=== PATIENT | female | born 1990 | race African-American/Black ===

== ENCOUNTER 2019-06-15 01:22 | Emergency (ER) | payer OTHER, SELFPAY ==
--- NOTE | ~2019-06-15 | US_ITS ---
EXAMINATION: US OB <=14 wk fetus w TV DATE: 06/15/2019 03:31 INDICATION: Vaginal bleeding in . Left lower quadrant abdominal pain. TECHNIQUE: Real-time transabdominal and transvaginal pelvic ultrasound was performed. COMPARISON: None. FINDINGS: TRANSABDOMINAL ULTRASOUND: The uterus measures 9.7 x 6.3 x 5.3 cm. TRANSVAGINAL ULTRASOUND: There is a fluid collection in the endometrial complex with mean diameter of 8 mm. If this finding is a gestational sac, it correlates with an estimated gestational age of 5 wee ks and 3 days +/- 3 days. No yolk sac or pole is visible. There is an intrauterine device in a bnormally low position in the lower uterine segment. The right ovary measures 2.9 x 2.8 x 1.9 cm. The left ovary measures 3.2 x 3.6 x 2.6 cm. There is normal vascular flow in the ovaries. There is a sma ll volume of free fluid in the pelvis. IMPRESSION: 1. Fluid collection in the endometrial complex that may be a gestational sac with estimated date of delivery of 02/11/2010. Spontaneous and ectopic are not excluded. Serial beta-hCGs are recommended. 2. Intrauterine device in abnormally low position in the lower uterine segment. Reviewed, dictated and finalized at location A. [employer] IMPRESSION: 1. Fluid collection in the endometrial complex that may be a gestational sac w ith estimated date of delivery of 02/11/2010. Spontaneous and ectopic are not excluded. Serial beta-hCGs are recommended. 2. Intrauterine device in abnormally low position in the lower uterine segment.
[2019-06-15 01:33] VITALS: BP 128/86; PULSE 76; RESP 16; TEMP 36.6; O2SAT 100
--- NOTE | 2019-06-15 01:42 | ED.ABDPAIN ---
HPI - Abdominal Pain General Chief Complaint: Abdominal Pain Stated Complaint: abd pain Time Seen by Provider: 06/15/19 01:32 Source: patient and RN notes reviewed Mode of arrival: ambulatory Limitations: no limitations History of Present Illness HPI narrative: Pt is a 28 y/o female who presents to the ED with c/o LLQ pain starting earlier this evening. She notes that she is currently on her period. Pt states that she felt fine throughout the day yesterday, but notes that she developed intense LLQ pain while laying down around 20:30 yesterday. She states that her pain initially felt similar to menstrual cramps. Pt states that her pain soon worsened into a sharp pain, and notes that her pain radiates down her lt leg. Pt states that she tried taking Tylenol this evening for her pain, but notes that she had a total of 3 episodes of emesis after taking the medication. She also reports mild low back pain, which she notes seems to be unrelated to her ABD pain. Pt denies any numbness, fever, dysuria, vaginal discharge, or diarrhea. She states that she has no Hx of similar symptoms. Pt currently has an IUD in place. MD elicited complaint: abdominal pain Onset (ago): hour(s) (5.5) Pain Consistency: colicky Location: LLQ Quality: sharp Radiation: other (down lt leg) Associated symptoms: nausea, vomiting and other (low back pain) Treatments prior to arrival: other (Tylenol) Related Data Home Medications Medication Instructions Recorded Confirmed levonorgestrel 20 mcg/24 hours (5 1 device I-UTERINE ONCE 03/29/19 03/29/19 yrs) 52 mg intrauterine device Allergies Allergy/AdvReac Type Severity Reaction Status Date / Time Sulfa (Sulfonamide Allergy Unknown Difficulty Verified 03/29/19 11:40 Antibiotics) breathing Review of Systems Review of Systems: Narrative: CONSTITUTIONAL: Denies fever, chills, or sweats. GASTROINTESTINAL: Reports LLQ pain radiating down lt leg, nausea, and vomiting. Denies diarrhea. GENITOURINARY: Denies dysuria, hematuria, vaginal discharge. MUSCULOSKELETAL: Reports low back pain. Denies joint pain. NEUROLOGIC: Denies headache, numbness, or weakness. All systems reviewed & are unremarkable except as noted in HPI and below PMFSH Past Medical History Medical History ADD (attention deficit disorder) IUD (intrauterine device) in place Surgical History Surgical History No significant past surgical history Social History Social History Smoking status: Current every day smoker Second hand tobacco smoke exposure: Yes Alcohol intake: current Exam Narrative: Exam Narrative: GENERAL: Well-appearing, well-nourished, and in no acute distress. HEAD: Normocephalic, atraumatic. EYES: PERRLA and EOMI. ENT: Nares clear, no rhinorrhea or epistaxis. Mucous membranes moist. NECK: Supple. CHEST: Clear to auscultation. No respiratory distress. HEART: Regular rate and rhythm. No murmur heard. Normal peripheral pulses. ABDOMEN: Soft, nondistended, normal active bowel sounds. LLQ and suprapubic tenderness. No flank tenderness. /HIMS CODER: Labia majora and minora normal without lesions. Vagina scant blood, no brisk bleeding. No cervical motion tenderness. Mild right adnexal tenderness, no fullness. No mucoid discharge present. OS not visualized. IUD not visualized. EXTREMITIES: Normal range of motion. No edema. Negative straight leg raise. SKIN: Warm, dry, no rash. NEURO: No focal deficits. Alert and oriented. Course Course Emergency Course: Patient presented for evaluation of abdominal pain. Patient reportedly with IUD, states she has been on her period for essentially 10 days. At the time of initial assessment, ABCs are intact and vital signs are stable. Physical examination notable for left lower quadrant abdominal tenderness, suprapubic tenderness. Pelvic exam notable for blood present in the vaginal vault, cervical loss n
[2019-06-15 02:09] LABS: Basophils Percent Auto 0.4 % (0.2-1.2); Eosinophils Absolute Auto 0.1 K/mm3 (0-0.3); Hematocrit 37.7 % (37.0-47.0); Hemoglobin 11.8 g/dL (12.0-15.0); Immature Granulocyte Absolute 0.01 K/mm3 (0.00-0.031); Immature Granulocyte Percent A 0.1 % (0-0.5); Lymphocytes Absolute Auto 1.86 K/mm3 (0.9-3.2); Lymphocytes Percent Auto 20.3 % (18.3-44.2); Mean Corpuscular HGB Conc 31.3 g/dl (32-36); Mean Corpuscular Hemoglobin 24.8 pg (26-34); Mean Corpuscular Volume 79.2 fl (80-100); Mean Platelet Volume 10.9 fl (7.4-10.4); Monocytes Absolute Auto 0.7 K/mm3 (0.1-0.6); Monocytes Percent Auto 8.1 % (2.6-8.5); Neutrophils Absolute Auto 6.4 K/mm3 (1.3-6.7); Neutrophils Percent Auto 70.1 % (45.5-73.1); Platelet Count Result 232 k/mm3 (150-375); Red Blood Count 4.76 M/mm3 (4.2-5.4); Red Cell Distribution Width 14.9 % (11.5-14.5); White Blood Count 9.2 K/mm3 (4.5-10.0)
[2019-06-15] MEDS: MORPHINE SULFATE 4 MG/ML INJ IV PUSH (02:10)
[2019-06-15] MEDS: ONDANSETRON INJ 4 MG/2 ML VIAL IV PUSH (02:10)
[2019-06-15] MEDS: SODIUM CHLORIDE 0.9% IV 1,000 ML 999 ML IV CONT (02:13)
[2019-06-15 02:19] LABS: Add Urine Microscopic? YES; Alanine Aminotransferase 12 U/L (4-35); Albumin Level 4.4 g/dL (3.5-5.1); Alkaline Phosphatase 64 U/L (38-126); Amorphous Sediment Urine Few; Appearance Urine Cloudy (Clear); Aspartate Amino Transferase 20 U/L (14-36); Bacteria Urine 1+ /hpf; Bilirubin Urine Negative (Negative); Bilirubin,Total 0.4 mg/dL (0.2-1.3); Blood Urea Nitrogen 11 mg/dL (7-17); Blood Urine 3+ (Negative); Calcium 8.6 mg/dL (8.4-10.2); Carbon Dioxide 25 mmol/L (22-30); Chloride 99 mmol/L (98-107); Color Urine Yellow (Yellow); Estimated CRCL calculation 137 ml/min; Estimated Glomerular Filt Rate > 60; Glucose 106 mg/dL (65-105); Glucose Urine UA Negative (Negative); Ketones Urine Trace mg/dL (Negative); Leukocyte Esterase Ur Negative LEU/UL (Negative); Lipase 37 U/L (23-300); Mucus Urine Few /lpf; Nitrate Urine Negative (Negative); Potassium 3.8 mmol/L (3.4-5.0); Protein Urine 1+ mg/dL (Negative); RBC Urine 21-50 /hpf (0-2); Sodium 138 mmol/L (137-145); Squamous Epithelial Cell Urine Many /hpf (Few)
[2019-06-15 02:35] VITALS: BP 120/77; PULSE 80; RESP 18; O2SAT 100
--- NOTE | 2019-06-15 02:40 | PC.NURSE ---
pt states pain is still 8/10 but the sharp pain has subsided. pt states she comfortable. pt instructed to use call light if sharp pain returns.
--- NOTE | 2019-06-15 02:54 | PC.NURSE ---
pt to US via stretcher.
[2019-06-15 03:01] LABS: Beta HCG Quantitative 440.82 mIU/ML
[2019-06-15 03:26] VITALS: BP 127/81; PULSE 84; RESP 16; O2SAT 99
[2019-06-15 03:34] VITALS: BP 135/89; BP 142/86; BP 148/90; PULSE 73; PULSE 76; PULSE 80
[2019-06-15 04:48] VITALS: BP 119/81; PULSE 86; RESP 20; O2SAT 100
[2019-06-15 04:57] VITALS: TEMP 36.7
== END 2019-06-15 04:58 | disposition home or self-care (01) ==
PROVIDERS: Emergency Provider Emergency Medicine; PCP Family Medicine
DX: O46.91 Antepartum hemorrhage, unspecified, first trimester (principal); O99.331 Smoking (tobacco) complicating pregnancy, first trimester; F17.200 Nicotine dependence, unspecified, uncomplicated; Z97.5 Presence of (intrauterine) contraceptive device; Z3A.01 Less than 8 weeks gestation of pregnancy
CPT/HCPCS: 36415; 76801; 76817; 80053; 81001; 81025; 83690; 84702; 85025; 86900; 86901; 96361; 96365; 96375; 99284; A9270; J0131; J2270; J2405; J7030

== ENCOUNTER 2020-01-18 11:45 | Observation (INO) | payer OTHER, SELFPAY ==
[2020-01-18] VITALS (18 sets, daily range): BP systolic 103–106; BP diastolic 61–64; PULSE 74–81; TEMP 36.9; O2SAT 99–100; BMI 36.0
[2020-01-18 12:57] LABS: Add Urine Microscopic? YES; Appearance Urine Cloudy (Clear); Bacteria Urine 2+ /hpf; Bilirubin Urine Negative (Negative); Blood Urine Negative (Negative); Color Urine Yellow (Yellow); Glucose Urine UA Negative (Negative); Ketones Urine Negative (Negative); Leukocyte Esterase Ur Trace LEU/UL (NEGATIVE); Mucus Urine Heavy /lpf; Nitrate Urine Negative (Negative); Protein Urine 1+ mg/dL (Negative); RBC Urine 0-2 /hpf (0-2); Specific Grav Ur 1.031 (1.001-1.035); Squamous Epithelial Cell Urine Moderate /hpf (Few); Urobilinogen Urine Negative mg/dL (<2.0)
--- NOTE | 2020-01-20 11:31 | P.PNOB_ITS ---
OB - Triage/Final Diagnosis Evaluation Laboratory results: Laboratory Tests 01/18/20 12:37 Urine Color Yellow Urine Appearance Cloudy H Urine pH 6.0 Ur Specific [place] 1.031 Urine Protein 1+ H Urine Glucose (UA) Negative Urine Ketones Negative Ur Blood (Man) Negative Urine Nitrate Negative Urine Bilirubin Negative Urine Urobilinogen Negative Ur Leukocyte Esterase Trace H Urine RBC 0-2 Urine WBC 4-6 H Ur Squamous Epith Cells Moderate H Urine Bacteria 2+ H Urine Mucus Heavy H Final Diagnosis (1) Nausea and vomiting in : Code(s): O21.9 - Vomiting of , unspecified Status: Acute
== END 2020-01-18 13:20 | disposition home or self-care (01) ==
PROVIDERS: Admitting Provider Obstetrics & Gynecology; PCP Family Medicine; Visit Provider Obstetrics & Gynecology
DX: O21.9 Vomiting of pregnancy, unspecified (principal); Z3A.00 Weeks of gestation of pregnancy not specified
CPT/HCPCS: 81001; 87086; G0378; G0379

== ENCOUNTER 2020-03-23 10:28 | Observation (INO) | payer OTHER, SELFPAY ==
--- NOTE | 2020-03-23 10:28 | OBADM ---
This patient, Rosa Mejia, admitted to the OB room OB Post 113 for observation. Patient/family oriented to hospital policies and general routines including ID bracelet, bed and alarms, visiting hours, pain management, procedures, bathroom and other care routines, personal items, smoking policy, room service/diet, and visiting hours. Patient/Family are encouraged to report perceived risks to care and to ask questions if they do not understand what they are told or what they should do.
[2020-03-23 11:00] VITALS: BMI 38.2
[2020-03-23 11:14] LABS: Add Urine Microscopic? YES; Appearance Urine Cloudy (Clear); Bacteria Urine 4+ /hpf; Bilirubin Urine Negative (Negative); Blood Urine Negative (Negative); Color Urine Yellow (Yellow); Glucose Urine UA Negative (Negative); Ketones Urine Negative (Negative); Leukocyte Esterase Ur 3+ LEU/UL (NEGATIVE); Mucus Urine Heavy /lpf; Nitrate Urine Negative (Negative); Protein Urine 1+ mg/dL (Negative); Specific Grav Ur 1.024 (1.001-1.035); Squamous Epithelial Cell Urine Many /hpf (Few); Urobilinogen Urine Negative mg/dL (<2.0); WBC Urine 16-20 /hpf (0-3)
[2020-03-23] MEDS: NITROFURANTOIN MONOHYD MACROCR 100 MG CAP PO (12:16)
[2020-03-23] MEDS: TERBUTALINE SULFATE 1 MG/ML VIAL 0.25 MG SUB-Q ×2 (12:16→13:44)
--- NOTE | 2020-03-28 07:52 | PM.OBTRLD ---
OB - Triage/Final Diagnosis Visit Information Reason for evaluation: other (cramping and back pain) Evaluation Laboratory results: Laboratory Tests 03/23/20 10:54 Urine Color Yellow Urine Appearance Cloudy H Urine pH 6.0 Ur Specific [place] 1.024 Urine Protein 1+ H Urine Glucose (UA) Negative Urine Ketones Negative Ur Blood (Man) Negative Urine Nitrate Negative Urine Bilirubin Negative Urine Urobilinogen Negative Ur Leukocyte Esterase 3+ H Urine RBC 6-10 H Urine WBC 16-20 H Ur Squamous Epith Cells Many H Urine Bacteria 4+ H Urine Mucus Heavy H
== END 2020-03-23 15:05 | disposition home or self-care (01) ==
PROVIDERS: Admitting Provider Obstetrics & Gynecology Gynecology; PCP Family Medicine; Visit Provider Obstetrics & Gynecology Gynecology
DX: O99.891 Other specified diseases and conditions complicating pregnancy (principal); M54.9 Dorsalgia, unspecified; Z3A.34 34 weeks gestation of pregnancy
CPT/HCPCS: 81001; 87086; 87088; 96372; A9270; G0378; G0379; J3105

== ENCOUNTER 2020-04-09 13:58 | Observation (INO) | payer OTHER, SELFPAY ==
--- NOTE | 2020-04-09 16:42 | OBADM ---
This patient, Rosa Mejia, admitted to the OB room Labor/Delivery/Recovery 103 for observation. Patient/family oriented to hospital policies and general routines including ID bracelet, bed and alarms, visiting hours, pain management, procedures, bathroom and other care routines, personal items, smoking policy, room service/diet, and visiting hours. Patient/Family are encouraged to report perceived risks to care and to ask questions if they do not understand what they are told or what they should do.
--- NOTE | 2020-04-18 18:02 | PM.OBTRLD ---
OB - Triage/Final Diagnosis Final Diagnosis (1) False labor: Code(s): O47.9 - False labor, unspecified Status: Acute
== END 2020-04-09 16:58 | disposition home or self-care (01) ==
PROVIDERS: Admitting Provider Obstetrics & Gynecology; PCP Family Medicine; Visit Provider Obstetrics & Gynecology
DX: O47.03 False labor before 37 completed weeks of gestation, third trimester (principal); Z3A.36 36 weeks gestation of pregnancy
CPT/HCPCS: G0378; G0379

== ENCOUNTER 2020-04-26 05:55 | Inpatient (IN) | payer OTHER, SELFPAY ==
[2020-04-26] VITALS (129 sets, daily range): BP systolic 99–127; BP diastolic 53–79; PULSE 61–117; RESP 16–18; TEMP 36.6–37.3; O2SAT 74–100; BMI 40.2
[2020-04-26 06:38] LABS: Basophils Percent Auto 0.3 % (0.2-1.2); Eosinophils Absolute Auto 0.1 K/mm3 (0-0.3); Eosinophils Percent Auto 0.8 % (0-4.4); Hematocrit 33.1 % (37.0-47.0); Hemoglobin 10.6 g/dL (12.0-15.0); Immature Granulocyte Absolute 0.08 K/mm3 (0.00-0.031); Immature Granulocyte Percent A 0.7 % (0-0.5); Mean Corpuscular Hemoglobin 25.4 pg (26-34); Mean Corpuscular Volume 79.4 fl (80-100); Mean Platelet Volume 12.6 fl (7.4-10.4); Monocytes Absolute Auto 0.8 K/mm3 (0.1-0.6); Monocytes Percent Auto 6.7 % (2.6-8.5); Neutrophils Absolute Auto 8.5 K/mm3 (1.3-6.7); Neutrophils Percent Auto 75.5 % (45.5-73.1); Platelet Count Result 219 k/mm3 (150-375); Red Blood Count 4.17 M/mm3 (4.2-5.4); Red Cell Distribution Width 13.4 % (11.5-14.5); White Blood Count 11.3 K/mm3 (4.5-10.0)
[2020-04-26] MEDS: LACTATED RINGERS 1,000 ML 125 ML IV CONT ×2 (07:08→09:22)
[2020-04-26] MEDS: OXYTOCIN 30 UNITS/NS 500 ML 30 UNITS/500 ML BAG IV CONT (07:11)
--- NOTE | 2020-04-26 07:26 | LDADM ---
This patient, Rosa Mejia, was admitted to Labor/Delivery/Recovery 105 on 04/26/20 at 05:55. Plans for labor, pain management and were discussed with patient. Patient/family oriented to hospital policies and general routines including ID bracelet, bed and alarms, visiting hours, pain management, procedures, bathroom and other care routines, personal items, smoking policy, room service/diet and guest tray routines, security routines, and visiting hours. Patient/Family are encouraged to report perceived risks to care and to ask questions if they do not understand what they are told or what they should do. See OBIX for further documentation.
--- NOTE | 2020-04-26 07:27 | WPDANESEPP ---
Anes - Eval Pre Procedure Procedure: labor epidural Date/Time: 04/26/20 07:27 Surgeon: Javier Pre Op Diagnosis: Induction of Labor Patient Data Age: 29 Gender: F Height: Weight: Last Vital Signs Temp 37.3 C 04/26/20 07:00 Pulse 91 04/26/20 07:11 BP 109/69 04/26/20 07:11 Allergies Allergy/AdvReac Type Severity Reaction Status Date / Time Sulfa (Sulfonamide Allergy Severe Dyspnea / Verified 01/13/18 15:23 Antibiotics) SOB Home Medications Medication Instructions Recorded Confirmed Type PNV cmb#95-ferrous fumarate-FA 1 tablet PO DAILY 04/05/20 04/05/20 History [] lansoprazole [Prevacid] 30 mg PO DAILY 04/05/20 04/05/20 History dextroamphetamine-amphetamine ER 10 mg PO DAILY #30 cap 04/10/20 Rx 10 mg 24hr capsule,extend release Laboratory Tests 04/26/20 04/26/20 06:28 06:29 WBC 11.3 K/mm3 H K/mm3 (4.5-10.0) RBC 4.17 M/mm3 L M/mm3 (4.2-5.4) Hgb 10.6 g/dL L g/dL (12.0-15.0) Hct 33.1 % L % (37.0-47.0) MCV 79.4 fl L fl (80-100) MCH 25.4 pg L pg (26-34) MCHC 32.0 g/dl g/dl (32-36) RDW 13.4 % % (11.5-14.5) Plt Count 219 k/mm3 k/mm3 (150-375) MPV 12.6 fl H fl (7.4-10.4) Immature Gran % (Auto) 0.7 % H % (0-0.5) Neut % (Auto) 75.5 % H % (45.5-73.1) Lymph % (Auto) 16.0 % L % (18.3-44.2) [place] % (Auto) 6.7 % % (2.6-8.5) Eos % (Auto) 0.8 % % (0-4.4) Baso % (Auto) 0.3 % % (0.2-1.2) Lymph # (Auto) 1.80 K/mm3 K/mm3 (0.9-3.2) [place] # (Auto) 0.8 K/mm3 H K/mm3 (0.1-0.6) Eos # (Auto) 0.1 K/mm3 K/mm3 (0-0.3) Baso # (Auto) 0.0 K/mm3 K/mm3 (0.0-0.1) Abs Immat Gran (auto) 0.08 K/mm3 H K/mm3 (0.00-0.031) Absolute Neuts (auto) 8.5 K/mm3 H K/mm3 (1.3-6.7) Absolute Nucleated RBC 0.0 K/mm3 K/mm3 (0.0-0.012) Nucleated RBC % 0.0 % % (0.0-0.2) RPR Pending : gestational age (05/03/20) Patient hx anesthesia problems: none Family hx anesthesia problems: none PMFSH Past Medical History Medical History (Updated 04/26/20 @ 07:27 by Jerry Tay CRNA) ADHD False labor Obesity Vaginal delivery Family History Family History Mother Hypertension Cerebrovascular accident Social History Social History Substance use: never Gender identity (if verbalized by the patient): Female Spiritual care concerns: No Exam Day of Procedure 04/26/20 07:27 Patient weight: obese Heart: regular rate and rhythm Lungs: clear to auscultation and normal air movement Neurological: alert and oriented
[2020-04-26] MEDS: PHENYLEPHRINE 1,000 MCG/10 ML SYRINGE 100 MCG IV PUSH (08:31)
--- NOTE | 2020-04-26 12:14 | WPDOBADMIT ---
Obstetrics - Admit Note Admission Note: AROM clear fluid /vertex record reviewed. No pertinent additions to the history and/or any subsequent changes in the physical findings that are not consistent with the expected course of the were found. Additions to the history and/or subsequent changes in the physical findings follow. None.
--- NOTE | 2020-04-26 14:05 | P.PCNOB_ITS ---
OB - Delivery Note Procedure Delivery date: 04/26/20 events: Labor Induction Intrapartal events: None Induction method: AROM and per pitocin protocol Delivery monitor: external FHT and external uterine Route of delivery: Laceration Description: None Specimen: No Anesthesia type: Epidural Disposition: floor [place] Baby Date of : 04/26/20 Time of : 13:51 Weeks of gestation at delivery: 39 Infant gender: Female Weight (pounds): 8 Weight (ounces): 8 presentation: vertex position: Left Occiput Anterior Placenta delivery description: Spontaneous cord vessel description: 3 Vessels score one minute: 8 score five minutes: 9
[2020-04-26] MEDS: OXYTOCIN 30 UNITS/NS 500 ML 30 UNITS/500 ML BAG 125 UNITS IV CONT (14:24)
[2020-04-26] MEDS: IBUPROFEN 600 MG TABLET PO (16:17)
--- NOTE | 2020-04-26 16:45 | PC.NURSE ---
Patient transferred to post room #282 per wheelchair from labor and delivery. Support person present. Oriented to unit, room, information board, rooming in, admission packet and security measures. Patient verbalizes understanding.
[2020-04-26] MEDS: ACETAMINOPHEN 325 MG TABLET 650 MG PO (18:46)
[2020-04-27] MEDS: IBUPROFEN 600 MG TABLET PO ×2 (00:33→08:03)
[2020-04-27 04:56] LABS: Hematocrit 28.2 % (37.0-47.0); Hemoglobin 9.1 g/dL (12.0-15.0)
--- NOTE | 2020-04-27 07:25 | WPDANLDPN2 ---
Anes-Prog Note L&D Date/Time: 04/27/20 07:25 Comfortable throughout: labor Neuraxial method: epidural Epidural/Spinal procedure site: clean & non-tender Neuro status: Neuro function grossly intact. Cardiovascular status: normal Respiratory status: normal Airway patency: baseline Mental status: baseline Post-Op hydration status: normal Vital Signs: Last Vital Signs Temp 36.7 C 04/26/20 20:00 Pulse 75 04/26/20 20:00 Resp 16 04/26/20 20:00 BP 100/65 04/26/20 20:00 Pulse Ox 97 04/26/20 20:00 Pain score (VAS): 2 I/O: Intake & Output 04/26/20 04/26/20 04/27/20 15:59 23:59 07:59 Intake Total 1000 1500 Output Total 1020 200 Balance -20 1300 Patient feedback: Patient satisfied with anesthetic care.
[2020-04-27 08:00] VITALS: BP 106/63; PULSE 73; RESP 18; TEMP 36.5
[2020-04-27] MEDS: DOCUSATE SODIUM 100 MG CAPSULE PO (08:03)
[2020-04-27] MEDS: MULTIVIT/MIN/PREN/FOL AC/IRON TABLET 1 TAB PO (08:03)
[2020-04-27] MEDS: POLYSACCHARIDE IRON COMPLEX 150 MG CAPSULE PO (08:03)
--- NOTE | 2020-04-27 11:00 | PC.NURSE ---
Patient instructed to view the discharge video Mother & Baby Care, The First Two Weeks . Patient was given the opportunity and encouraged to ask questions. Patient verbalized understanding of information shared and has been given the mother/baby guide for home reference.
[2020-04-27] MEDS: ACETAMINOPHEN 325 MG TABLET 650 MG PO (12:39)
[2020-04-29 07:09] LABS: Rapid Plasma Reagin Non-Reactive (NonReactive)
[2020-04-30 10:44] VITALS: BP 128/79; PULSE 80; RESP 16; TEMP 37.1; O2SAT 99
--- NOTE | 2020-05-03 11:56 | PM.OBDSVD ---
DS: Admitting Diagnosis Admitting Diagnosis Admitting Diagnosis: induction of labor DS: Discharge Diagnosis Discharge Diagnosis (1) (normal spontaneous vaginal delivery): Code(s): O80 - Encounter for full-term uncomplicated delivery Status: Acute OB - DS: Summary OB Procedures : Ultrasound OB Procedures Intrapartum: Spontaneous Vag Delivery OB Procedures: : None Time Spent with Patient Time attestation: Total time spent providing and/or coordinating discharge services: Exam GI: Other: ff below umbilicus Discharge Plan Discharge Attending physician on discharge: Gerardo Herrera Discharging Clinician: Gerardo Herrera Patient Disposition: Home, Self-Care Activity: may shower, may drive after 2 weeks and pelvic rest Diet: as tolerated Discharge Instructions: Education: Mom and Baby Guide and Preeclampsia Handout Given to: Mother Follow-Up: Call your delivering provider's office for an appointment to be seen in: 4 Weeks [facility]. Appointment Date/Time: April 30, 2020 at 11:00 am What to expect at your follow-up visit: Physical Assessment Call [phone] if you are unable to keep your appointment time. BREAST CARE: * Wear a snug supportive bra. * For engorgement discomfort: Breast Feeding: * Apply warm moist washcloths * Express milk as needed to relieve engorgement * Wear loose clothing * For sore nipples: * Identify correct latch-on * Apply warm moist washcloths before and after nursing * Air dry nipples after nursing * May apply Lansinoh cream to nipples EPISIOTOMY/PERINEAL CARE: * Until bleeding stops, use your unruly bottle after urinating * Change your pad frequently throughout the day * You may take sitz baths several times a day (fill your bathtub with warm water and soak for 20 minutes.) Do NOT bathe in the water * No tub baths until seen by your physician - You may shower ACTIVITY: * Rest as much as possible. * Do not exercise or lift anything heavier than your baby (such as laundry or other children.) * Avoid stairs or driving as much as possible. * Do not put anything into the vagina. No douching, tampons, or sexual activity until seen by physician. NOTIFY PHYSICIAN IF YOU HAVE ANY QUESTIONS OR IF ANY OF THE FOLLOWING SYMPTOMS OCCUR: * If your perineum becomes red, swollen, or more painful than what you have experienced in the hospital. * If your vaginal bleeding becomes foul smelling. * If your vaginal bleeding becomes more heavy than a period or if your bleeding changes from pink to bright red. However, you may pass an occasional walnut-sized clot once or twice for the first week . * If you experience a sharp, shooting pain in you calves. * If you discover a hard, reddened area on your breast or if you experience flu-like symptoms. DIET: * Eat regular, well-balanced meals. * Drink plenty of fluids daily. If , drink to thirst. Stand Alone Forms: General Discharge Information Follow-up/Referrals: Gerardo Herrera MD [Physician] - Discharge Medications: Continued lansoprazole [Prevacid] 30 mg Capsule,Delayed Release(Dr/Ec) 30 mg PO DAILY RF: 0 PNV cmb#95-ferrous fumarate-FA [] 28 mg iron- 800 mcg Tablet 1 tablet PO DAILY RF: 0 dextroamphetamine-amphetamine [Adderall XR] 10 mg capsule,extended release 24hr 10 mg PO DAILY Qty: 30 RF: 0 No Action nitrofurantoin monohyd/m-cryst [Macrobid] 100 mg Capsule 100 mg PO Q12HR Qty: 5 RF: 0 Date of admission: 04/26/20 05:55 Primary Care Provider: Maye Chen Admitting Provider: Gerardo Herrera Attending physician on admission: Gerardo Herrera Condition: Stable
== END 2020-04-27 15:34 | disposition home or self-care (01) | DRG 807 ==
LOC: ANHLDR 05:59 → ANHOB2 17:02
PROVIDERS: Admitting Provider Obstetrics & Gynecology; PCP Family Medicine; Visit Provider Obstetrics & Gynecology
DX: O99.214 Obesity complicating childbirth (principal); Z37.0 Single live birth; Z3A.39 39 weeks gestation of pregnancy; E66.9 Obesity, unspecified; O36.8330 Maternal care for abnormalities of the fetal heart rate or rhythm, third trimester, not applicable or unspecified; O99.344 Other mental disorders complicating childbirth; F90.9 Attention-deficit hyperactivity disorder, unspecified type; O69.81X0 Labor and delivery complicated by cord around neck, without compression, not applicable or unspecified
CPT/HCPCS: 36415; 85014; 85018; 85025; 86592; 86850; 86900; 86901; A9270; J2370; J2590; J2795; J7120

== ENCOUNTER 2021-03-12 06:45 | Outpatient (CLI) | payer OTHER, SELFPAY ==
--- NOTE | 2021-03-12 07:19 | ECG_ITS ---
Measurements Intervals [place] Rate: 57 P: 59 CA: 185 QRS: 56 QRSD: 109 T: 32 QT: 383 QTc: 375 Interpretive Statements SINUS BRADYCARDIA WITH SINUS ARRHYTHMIA INCOMPLETE RIGHT BUNDLE BRANCH BLOCK LOW QRS VOLTAGE IN PRECORDIAL LEADS BORDERLINE ECG Electronically Signed On 03-12-2021 11:58:44 MANUFACTURING PROJECT MANAGER by Leonardo Tafoya D.O.
--- NOTE | 2021-03-12 10:12 | WPDNEUROLOGY ---
Neurology EEG Report General Information Date of Study: 03/12/21 TEST eeg DIAGNOSIS syncope and collapse CONDITION OF RECORDING awake and drowsy EEG NUMBER [id number] CLINICAL HISTORY patient reported for the last 3 years she has episodes of syncope that last for few seconds then she is fine. Last week when having an episode she lost consciousness and fell down. EEG DESCRIPTION Whole record consists of low-voltage 15 to 21 hertz per 2nd beta activity. hyperventilation not done. Photic stimulation produced poor Dr. Non paroxysmal. Nonfocal. Nonlateralizing. IMPRESSION no significant abnormalities noted
== END 2021-03-12 06:46 | disposition home or self-care (01) ==
LOC: ANHNEURO 06:46
PROVIDERS: PCP Family Medicine; Visit Provider Family Medicine
DX: R55 Syncope and collapse (principal); I45.10 Unspecified right bundle-branch block
CPT/HCPCS: 93005; 95816

== ENCOUNTER 2022-09-23 00:36 | Day surgery (SDC) | payer OTHER, SELFPAY ==
[2022-09-16 15:08] VITALS: BMI 34.7
--- NOTE | 2022-09-22 11:30 | PM.HPGS ---
History of Present Illness History of Present Illness Consent: Risks, benefits, and alternatives have been discussed and questions answered. Patient agrees to proceed with procedure. Chief complaint: dysphagia, N&V, GERD Narrative: Rosa Mejia is a 32 year old female who has a long hx of GERD , now has increasing GERD symptoms and dysphagia.? Patient reports she has had issue with GERD off and on for the past 10 years but since the of her 1st child approximately 4-5 years ago her reflux symptoms and dysphagia have been progressively gotten worse.? states she feels like food gets stuck in mid chest area as if it is just sitting there, though this usually occurs after she has finished eating. It is as if food goes down to her stomach and then work this weight back up and cause pressure in her upper esophagus and throat. The left side she feels That there is something not right. weight is stable. During her pregnancies she had mostly reflux and quite a bit of heartburn. The Feeling of dysphagia and postprandial regurgitation has come on more recently about 2 years ago. Review of Systems Review of Systems: All systems reviewed & are unremarkable except as noted in HPI and below PMFSH Past Medical History Medical History ADD (attention deficit disorder) ADHD Dysphagia False labor IUD (intrauterine device) in place Migraine Nausea and vomiting Nausea and vomiting in (normal spontaneous vaginal delivery) Obesity Vaginal delivery Surgical History Surgical History No significant past surgical history Family History Family History Mother Hypertension Cerebrovascular accident Mother Family history of obesity Hypertension Cerebrovascular accident Sibling Family history of alcoholism Family history of attention deficit hyperactivity disorder (ADHD) Family history of seizure disorder Father Family history of arthritis Social History Social History Years smoked: 2 Smoking status: Former smoker Tobacco type: cigarettes Second hand tobacco smoke exposure: Yes Smoking end date: 11/17/21 Alcohol intake: current Drinks per week: 3 Substance use: never Substance use type: does not use Living arrangements: with family Occupation/Education: occupation Gender identity (if verbalized by the patient): Female Spiritual care concerns: No Agree to blood products: Yes Meds Home Medications and Allergies Home Medications Medication Instructions Recorded Confirmed Type vit no.95-ferrous 1 tablet PO DAILY 04/05/20 09/23/22 History fumarate 28 mg-folic acid 800 mcg tablet () [id number] 250 1 tablet PO Q4-6H PRN Migraine 06/06/21 09/23/22 History mg-250 mg-65 mg tablet (Excedrin Headache Migraine) levonorgestrel 21 mcg/24 hours (8 1 insert intrauterine ONCE 06/06/21 09/23/22 History yrs) 52 mg intrauterine device (Mirena) dextroamphetamine-amphetamine ER 20 mg PO DAILY #60 caps 06/05/22 09/23/22 Rx 10 mg 24hr capsule,extend release (Adderall XR) cetirizine 10 mg tablet (Zyrtec) 10 mg PO DAILY PRN Allergy Symptoms 06/25/22 09/23/22 History dextroamphetamine-amphetamine ER 20 mg PO DAILY #30 caps 08/25/22 09/23/22 Rx 20 mg 24hr capsule,extend release (Adderall XR) famotidine 20 mg tablet 20 mg PO DAILY #30 tabs 08/27/22 09/23/22 Rx naltrexone 8 mg-bupropion 90 mg 2 tablet PO BID 90 days #360 tabs 08/27/22 09/23/22 Rx tablet,extended release (Contrave) esomeprazole magnesium 40 mg 40 mg PO DAILY 1 month #30 caps 09/07/22 09/23/22 Rx capsule,delayed release (Nexium) Allergies Allergy/AdvReac Type Severity Reaction Status Date / Time Sulfa (Sulfonamide Allergy Severe Dyspnea / [place]
[2022-09-23 08:06] VITALS: BP 120/75; PULSE 80; RESP 20; TEMP 36.4; O2SAT 100
[2022-09-23] MEDS: LACTATED RINGERS 1,000 ML 150 ML IV CONT (08:17)
--- NOTE | 2022-09-23 08:25 | WPDANESEPPF ---
Anes - Initial Pre Proc Eval Procedure: Operation Date: 09/23/22 09:00 Proposed Procedures p Esophagogastroduodenoscopy - Bo Squires MD Date/Time: 09/23/22 08:25 Surgeon: Bo Squires MD Pre Op Diagnosis: dysphagia, N&V, GERD Patient Data Age: 32 Gender: F Height: 1.78 m Weight: 110.8 kg Last Vital Signs Temp 36.4 C L 09/23/22 08:06 Pulse 80 09/23/22 08:06 Resp 20 09/23/22 08:06 BP 120/75 09/23/22 08:06 Pulse Ox 100 09/23/22 08:06 O2 Del Method Room Air 09/23/22 08:06 Allergies Allergy/AdvReac Type Severity Reaction Status Date / Time Sulfa (Sulfonamide Allergy Severe Dyspnea / Verified 09/23/22 08:18 Antibiotics) SOB amoxicillin [From Augmentin] AdvReac Intermediate Nausea and Verified 09/23/22 08:18 Vomiting clavulanic acid AdvReac Intermediate Nausea and Verified 09/23/22 08:18 [From Augmentin] Vomiting Home Medications Medication Instructions Recorded Confirmed Type vit no.95-ferrous 1 tablet PO DAILY 04/05/20 09/23/22 History fumarate 28 mg-folic acid 800 mcg tablet () [id number]-vehjmxtalguwa-caoobzvg 250 1 tablet PO Q4-6H PRN Migraine 06/06/21 09/23/22 History mg-250 mg-65 mg tablet (Excedrin Headache Migraine) levonorgestrel 21 mcg/24 hours (8 1 insert intrauterine ONCE 06/06/21 09/23/22 History yrs) 52 mg intrauterine device (Mirena) dextroamphetamine-amphetamine ER 20 mg PO DAILY #60 caps 06/05/22 09/23/22 Rx 10 mg 24hr capsule,extend release (Adderall XR) cetirizine 10 mg tablet (Zyrtec) 10 mg PO DAILY PRN Allergy Symptoms 06/25/22 09/23/22 History dextroamphetamine-amphetamine ER 20 mg PO DAILY #30 caps 08/25/22 09/23/22 Rx 20 mg 24hr capsule,extend release (Adderall XR) famotidine 20 mg tablet 20 mg PO DAILY #30 tabs 08/27/22 09/23/22 Rx naltrexone 8 mg-bupropion 90 mg 2 tablet PO BID 90 days #360 tabs 08/27/22 09/23/22 Rx tablet,extended release (Contrave) esomeprazole magnesium 40 mg 40 mg PO DAILY 1 month #30 caps 09/07/22 09/23/22 Rx capsule,delayed release (Nexium) Patient hx anesthesia problems: none Family hx anesthesia problems: none Results Review: All pre-operative results and documents have been reviewed as part of the pre-operative evaluation. [facility] [place] Past Medical History Medical History ADD (attention deficit disorder) ADHD Dysphagia False labor IUD (intrauterine device) in place Migraine Nausea and vomiting Nausea and vomiting in (normal spontaneous vaginal delivery) Obesity Vaginal delivery Surgical History Surgical History No significant past surgical history Family History Family History Mother Hypertension Cerebrovascular accident Mother Family history of obesity Hypertension Cerebrovascular accident Sibling Family history of alcoholism Family history of attention deficit hyperactivity disorder (ADHD) Family history of seizure disorder Father Family history of arthritis Social History Social History Years smoked: 2 Smoking status: Former smoker Tobacco type: cigarettes Second hand tobacco smoke exposure: Yes Smoking end date: 11/17/21 Alcohol intake: current Drinks per week: 3 Substance use: never Substance use type: does not use Living arrangements: with family Occupation/Education: occupation Gender identity (if verbalized by the patient): Female Spiritual care concerns: No Agree to blood products: Yes Anes - Eval Final PreProcedure Day of Procedure 09/23/22 08:25 Patient weight: obese Heart: regular rate and rhythm Lungs: clear to auscultation and normal air movement Airway: Mallampati scale class II Neurological: alert and oriented Last oral intake: >/= 8 hours
[2022-09-23 09:07] VITALS: BP 123/82; PULSE 80; RESP 17; O2SAT 99
[2022-09-23 09:17] VITALS: BP 122/81; PULSE 71; RESP 22; O2SAT 100
[2022-09-23 09:27] VITALS: BP 118/80; PULSE 62; RESP 21; O2SAT 100
== END 2022-09-23 09:40 | disposition home or self-care (01) ==
PROVIDERS: PCP Family Medicine; Visit Provider Internal Medicine Gastroenterology
PROC: 0DJ08ZZ Inspection of Upper Intestinal Tract, Via Natural or Artificial Opening Endoscopic (ICD-10-PCS; CPT 43235; principal; 2022-09-23 09:00)
DX: K21.9 Gastro-esophageal reflux disease without esophagitis (principal); F90.9 Attention-deficit hyperactivity disorder, unspecified type; Z87.891 Personal history of nicotine dependence; E66.9 Obesity, unspecified; Z68.35 Body mass index [BMI] 35.0-35.9, adult
CPT/HCPCS: 43239; 88305; J2001; J2704; J7120

== ENCOUNTER → 2022-10-16 10:29 | Outpatient (CLI) | payer OTHER, SELFPAY ==
--- NOTE | ~2022-10-16 | XR_ITS ---
EXAMINATION: XR UGIAC w kub DATE: 10/16/2022 11:14 INDICATION: Dysphagia TECHNIQUE: The patient drank thick barium, gas-producing crystals, and thin barium. Conventional supi ne abdomen radiographs and fluoroscopy of the esophagus, stomach, and proximal small bowel were perfo rmed. Fluoroscopy exposure time was 2.9 minutes. The DAP for this procedure was 23.512 Gycm2. COMPARISON: None. FINDINGS: There is no mass or stricture of the esophagus. Esophageal motility is normal. There is no hiatal hernia. There was a trace volume of gastroesophageal reflux. The stomach and proximal small javad wel show normal folding patterns. IMPRESSION: 1. Trace gastroesophageal reflux. Reviewed, dictated and finalized at location B.
== END ==
PROVIDERS: PCP Family Medicine; Visit Provider Surgery
DX: R13.10 Dysphagia, unspecified (principal)
CPT/HCPCS: 74246